=== PATIENT | female | born 2000 | race Asian ===

== ENCOUNTER 2021-03-19 15:11 | Emergency (ER) | payer BC, SELFPAY ==
[~2021-03-19] VITALS: Ht 170.2 cm; Wt 49.9 kg
[2021-03-19 15:11] VITALS: BP_SYST 134
--- NOTE | 2021-03-19 15:17 | NUR ---
Patient triaged and placed in waiting room. VSS and patient appears in no acute distress at this time. Accompanied by SELF, awaiting available bed, and MD notified of need for MSE.
--- NOTE | 2021-03-19 18:01 | NUR ---
SEEN AND EVALUATED BY DR WILLSON, AWAITING ORDERS
--- NOTE | 2021-03-19 18:14 | NUR ---
BROUGHT BACK TO HALLWAY BED AND REPORT GIVEN TO ANANYA
--- NOTE | 2021-03-19 18:41 | NUR ---
EMT SHAWN AT BEDSIDE TO CLEAR WAX FROM EAR, PT TOLERATING WELL.
--- NOTE | 2021-03-19 19:28 | NUR ---
ASSUMED CARE OF PT FROM ANANYA BROWN
[2021-03-19] MEDS ORDERED: IBUP-1969 PO (19:32)
[2021-03-19] MEDS ORDERED: CETI1TAB2 PO (19:32)
--- NOTE | 2021-03-19 19:57 | NUR ---
Patient given written and verbal discharge instructions and verbalizes understanding. ER MD discussed with patient the results and treatment provided. Patient in stable condition. ID arm band removed. Rx of zyrtec, ibuprofen given. Patient educated on pain management and to follow up with PMD. Pain Scale 2/10. Opportunity for questions provided and answered. Medication side effect fact sheet provided.
[2021-03-19 20:03] VITALS: BP_SYST 134
== END 2021-03-19 19:57 | disposition home or self-care (01) ==
LOC: SED 15:11
DX: H61.23 Impacted cerumen, bilateral (principal)
CPT/HCPCS: 99282